=== PATIENT | female | born 1940 | race Caucasian/White ===

== ENCOUNTER 2017-02-23 17:18 | Emergency (ER) | payer OTHER ==
[~2017-02-23] VITALS: Ht 157.5 cm; Wt 68.9 kg
[~2017-02-23 17:18] MED LIST: ACET-1010 PO; ATEN-41 PO; CEL20 PO; ENAL20TA PO; LEVO75TA7 PO; NABU-95 PO; OMEP20CA10 PO; SIMV10TA2 PO; TRAZ-123 PO
[2017-02-23] MEDS ORDERED: HYDROcodone/ACETAMIN 5-325 MG TAB (NORCO/ VICODIN) PO ONE (17:45)
[2017-02-23 19:09] VITALS: BP_SYST 148
== END 2017-02-23 19:11 | disposition home or self-care (01) ==
LOC: SED 17:18
DX: S92.352A Displaced fracture of fifth metatarsal bone, left foot, initial encounter for closed fracture (principal); S93.492A Sprain of other ligament of left ankle, initial encounter; I10 Essential (primary) hypertension; Z90.710 Acquired absence of both cervix and uterus; Z96.659 Presence of unspecified artificial knee joint; Z88.5 Allergy status to narcotic agent; Z79.899 Other long term (current) drug therapy; W18.30XA Fall on same level, unspecified, initial encounter; Y93.89 Activity, other specified; Y92.89 Other specified places as the place of occurrence of the external cause; Y99.8 Other external cause status
CPT/HCPCS: 99284

== ENCOUNTER 2019-01-21 12:16 | Emergency (ER) | payer OTHER ==
[~2019-01-21] VITALS: Ht 157.5 cm; Wt 78.0 kg
[~2019-01-21 12:16] MED LIST changes: -ACET-1010 PO; +ACET-2634 PO; -TRAZ-123 PO; +TRAZ-218 PO
[2019-01-21 12:26] VITALS: BP_SYST 142
[2019-01-21] MEDS ORDERED: traMADol HCL HCL 50 MG TABLET (ULTRAM) PO ONE (13:00)
[2019-01-21] MEDS ORDERED: fentaNYL CITRATE/PF 100 MCG/2 ML AMP IM ONE (13:45)
[2019-01-21 14:57] VITALS: BP_SYST 138
== END 2019-01-21 14:57 | disposition home or self-care (01) ==
LOC: SED 12:16
DX: M17.11 Unilateral primary osteoarthritis, right knee (principal); I10 Essential (primary) hypertension; E07.9 Disorder of thyroid, unspecified; Z79.899 Other long term (current) drug therapy; Z88.5 Allergy status to narcotic agent
CPT/HCPCS: 73564; 96372; 99283; J3010

== ENCOUNTER 2023-02-01 14:23 | Emergency (ER) | payer OTHER ==
[~2023-02-01] VITALS: Ht 152.4 cm; Wt 66.7 kg
[~2023-02-01 14:23] MED LIST changes: -ENAL20TA PO; +ENAL20TA18 PO; +NABU-140 PO; -NABU-95 PO; -OMEP20CA10 PO; +OMEP20CA15 PO; +SIMV-341 PO; -SIMV10TA2 PO; -TRAZ-218 PO; +TRAZ-250 PO
[2023-02-01 14:35] VITALS: BP_SYST 132; PULSE 61; RESP 18; TEMP 98.4; O2SAT 94
[2023-02-01] MEDS ORDERED: NACL 0.9% 1,000 ML IV ONE (15:00)
[2023-02-01] MEDS ORDERED: NALOXONE HCL 0.4 MG/ML AMP (NARCAN) IVP ONE (15:00)
[2023-02-01] MEDS ORDERED: ONDANSETRON HCL 4 MG/2 ML VIAL IVP ONE (15:00)
[2023-02-01 15:16] LABS: BASOPHILS % (AUTO) 0.4 % (0.0-2.0); EOSINOPHILS # (AUTO) 0.1 K/uL (0.0-0.4); EOSINOPHILS % (AUTO) 0.8 % (0.0-4.0); HEMATOCRIT 38.2 % (36-48); HEMOGLOBIN 12.6 g/dL (12.0-16.0); LYMPHOCYTES # (AUTO) 0.9 K/uL (1.0-5.5); LYMPHOCYTES % (AUTO) 11.7 % (20.5-51.5); MEAN CORPUSCULAR HEMOGLOBIN 29 pg (27-31); MEAN CORPUSCULAR HGB CONC 33 % (32-36); MEAN CORPUSCULAR VOLUME 88 fL (79.0-98.0); MONOCYTES # (AUTO) 0.4 K/uL (0.0-1.0); MONOCYTES % (AUTO) 5.3 % (1.7-9.3); NEUTROPHILS # (AUTO) 6.1 K/uL (1.8-7.7); NEUTROPHILS % (AUTO) 81.8 % (40.0-70.0); PLATELET COUNT (AUTO) 262 K/uL (130-430); RED BLOOD CELL COUNT(AUTO) 4.35 MIL/uL (4.2-6.2); RED CELL DISTRIBUTION WIDTH 12.6 % (9.0-15.0); WHITE BLOOD COUNT (AUTO) 7.4 K/uL (4.8-10.8)
[2023-02-01 15:48] LABS: ALANINE AMINOTRANSFERASE 19 U/L (12-78); ALBUMIN 3.7 g/dL (3.4-4.8); ANION GAP 11 (5-15); ASPARTATE AMINOTRANSFERASE 20 U/L (10-37); CALCIUM 8.6 mg/dL (8.4-11.0); CARBON DIOXIDE 23 mmol/L (23-29); CHLORIDE 104 mmol/L (98-107); GLUCOSE 114 mg/dL (74-106); LIPASE 38 U/L (73-393); POTASSIUM 3.9 mmol/L (3.5-5.1); SODIUM SERUM 138 mmol/L (136-145); TOTAL BILIRUBIN 0.3 mg/dL (0.0-1.0); UREA NITROGEN, BLOOD 10 mg/dL (8-21)
[2023-02-01 16:01] LABS: CREATININE 0.81 mg/dL (0.55-1.30); TOTAL PROTEIN, SERUM 6.9 g/dL (6.4-8.3)
[2023-02-01 18:22] LABS: CLARITY/URINE CLEAR (CLEAR); COLOR,URINE YELLOW (YELLOW); PH,URINE 5.5 (5.0-8.0)
[2023-02-01 18:23] LABS: BILIRUBIN,URINE NEGATIVE (NEGATIVE); BLOOD, URINE NEGATIVE (NEGATIVE); GLUCOSE,URINE NEGATIVE (NEGATIVE); KETONES,URINE NEGATIVE (NEGATIVE); LEUKOCYTE ESTERASE ,URINE NEGATIVE (NEGATIVE); NITRITE, URINE NEGATIVE (NEGATIVE); PROTEIN URINE NEGATIVE (NEGATIVE); UROBILINOGEN,URINE 0.2 (0.2-1.0)
[2023-02-01 18:58] VITALS: BP_SYST 124; PULSE 74; RESP 20; TEMP 98.4; O2SAT 94
== END 2023-02-01 18:58 | disposition home or self-care (01) ==
LOC: SED 14:23
DX: R42 Dizziness and giddiness (principal); T42.75XA Adverse effect of unspecified antiepileptic and sedative-hypnotic drugs, initial encounter; R53.1 Weakness; I10 Essential (primary) hypertension; Z88.5 Allergy status to narcotic agent; Z79.899 Other long term (current) drug therapy
CPT/HCPCS: 99284; 96374; 96361; 96375; 80053; 83690; 85025; 84484; 36415; 93005; 81003; J2310; J2405; J7030

== ENCOUNTER 2023-02-08 15:10 | Emergency (ER) | payer OTHER ==
[~2023-02-08] VITALS: Ht 152.4 cm; Wt 66.7 kg
[2023-02-08 15:15] VITALS: PULSE 71; RESP 19; TEMP 98; O2SAT 98
[2023-02-08] MEDS ORDERED: NACL 0.9% 1,000 ML IV ONE (15:30)
[2023-02-08 16:56] LABS: BILIRUBIN,URINE NEGATIVE (NEGATIVE); BLOOD, URINE NEGATIVE (NEGATIVE); CLARITY/URINE CLEAR (CLEAR); COLOR,URINE STRAW (YELLOW); GLUCOSE,URINE NEGATIVE (NEGATIVE); KETONES,URINE NEGATIVE (NEGATIVE); LEUKOCYTE ESTERASE ,URINE NEGATIVE (NEGATIVE); NITRITE, URINE NEGATIVE (NEGATIVE); PROTEIN URINE NEGATIVE (NEGATIVE); UROBILINOGEN,URINE 0.2 (0.2-1.0)
[2023-02-08 16:57] LABS: BASOPHILS % (AUTO) 0.5 % (0.0-2.0); EOSINOPHILS # (AUTO) 0.2 K/uL (0.0-0.4); EOSINOPHILS % (AUTO) 2.2 % (0.0-4.0); HEMATOCRIT 38.6 % (36-48); HEMOGLOBIN 12.5 g/dL (12.0-16.0); LYMPHOCYTES # (AUTO) 1.6 K/uL (1.0-5.5); LYMPHOCYTES % (AUTO) 19.2 % (20.5-51.5); MEAN CORPUSCULAR HEMOGLOBIN 29 pg (27-31); MEAN CORPUSCULAR HGB CONC 32 % (32-36); MEAN CORPUSCULAR VOLUME 89 fL (79.0-98.0); MONOCYTES # (AUTO) 0.6 K/uL (0.0-1.0); NEUTROPHILS # (AUTO) 5.9 K/uL (1.8-7.7); NEUTROPHILS % (AUTO) 71.1 % (40.0-70.0); PLATELET COUNT (AUTO) 276 K/uL (130-430); RED BLOOD CELL COUNT(AUTO) 4.36 MIL/uL (4.2-6.2); RED CELL DISTRIBUTION WIDTH 12.5 % (9.0-15.0); WHITE BLOOD COUNT (AUTO) 8.2 K/uL (4.8-10.8)
[2023-02-08 17:15] LABS: ALANINE AMINOTRANSFERASE 7 U/L (12-78); ANION GAP 8 (5-15); ASPARTATE AMINOTRANSFERASE 16 U/L (10-37); CALCIUM 9.6 mg/dL (8.4-11.0); CARBON DIOXIDE 26 mmol/L (23-29); CHLORIDE 104 mmol/L (98-107); CREATININE 0.79 mg/dL (0.55-1.30); GLUCOSE 98 mg/dL (74-106); POTASSIUM 4.4 mmol/L (3.5-5.1); SODIUM SERUM 138 mmol/L (136-145); TOTAL BILIRUBIN 0.2 mg/dL (0.0-1.0); TOTAL PROTEIN, SERUM 7.2 g/dL (6.4-8.3); UREA NITROGEN, BLOOD 12 mg/dL (8-21)
[2023-02-08 17:18] LABS: PHOSPHORUS 3.9 mg/dL (2.7-4.5)
[2023-02-08 19:29] VITALS: BP_SYST 151; PULSE 60; RESP 16; TEMP 97.5; O2SAT 95
== END 2023-02-08 20:30 | disposition home or self-care (01) ==
LOC: SED 15:10
DX: R42 Dizziness and giddiness (principal); R51.9 Headache, unspecified; I10 Essential (primary) hypertension; Z88.5 Allergy status to narcotic agent; Z79.899 Other long term (current) drug therapy
CPT/HCPCS: 99285; 96360; 70450; 71045; 80053; 83735; 84100; 85025; 84484; 36415; 93005; 76376; 81003; J7030